=== PATIENT | female | born 1955 | race Caucasian/White ===

== ENCOUNTER 2022-10-31 19:34 | Inpatient (IN) | payer OTHER ==
[~2022-10-31] VITALS: Ht 152.4 cm; Wt 100.7 kg
[2022-10-31 19:38] VITALS: BP_SYST 153; PULSE 70; RESP 16; TEMP 97.1; O2SAT 97
[2022-10-31 21:38] LABS: BASOPHILS # (AUTO) 0.1 K/uL (0.0-0.2); BASOPHILS % (AUTO) 0.5 % (0.0-2.0); EOSINOPHILS # (AUTO) 0.2 K/uL (0.0-0.4); EOSINOPHILS % (AUTO) 1.2 % (0.0-4.0); HEMATOCRIT 34.7 % (36-48); HEMOGLOBIN 11.2 g/dL (12.0-16.0); LYMPHOCYTES % (AUTO) 7.2 % (20.5-51.5); MEAN CORPUSCULAR HEMOGLOBIN 29 pg (27-31); MEAN CORPUSCULAR HGB CONC 32 % (32-36); MEAN CORPUSCULAR VOLUME 90 fL (79.0-98.0); MONOCYTES # (AUTO) 0.8 K/uL (0.0-1.0); MONOCYTES % (AUTO) 6.2 % (1.7-9.3); NEUTROPHILS # (AUTO) 11.4 K/uL (1.8-7.7); NEUTROPHILS % (AUTO) 84.9 % (40.0-70.0); PLATELET COUNT (AUTO) 438 K/uL (130-430); RED BLOOD CELL COUNT(AUTO) 3.85 MIL/uL (4.2-6.2); RED CELL DISTRIBUTION WIDTH 14.6 % (9.0-15.0); WHITE BLOOD COUNT (AUTO) 13.4 K/uL (4.8-10.8)
[2022-10-31 21:52] LABS: ALBUMIN 2.9 g/dL (3.4-4.8); CALCIUM 10.1 mg/dL (8.4-11.0); CREATININE 1.22 mg/dL (0.55-1.30); TOTAL BILIRUBIN 0.3 mg/dL (0.0-1.0); TOTAL PROTEIN, SERUM 7.5 g/dL (6.4-8.3)
[2022-10-31 21:55] LABS: POTASSIUM 2.7 mmol/L (3.5-5.1)
[2022-11-01 01:31] LABS: BILIRUBIN,URINE NEGATIVE (NEGATIVE); BLOOD, URINE NEGATIVE (NEGATIVE); CLARITY/URINE CLEAR (CLEAR); COLOR,URINE YELLOW (YELLOW); GLUCOSE,URINE NEGATIVE (NEGATIVE); KETONES,URINE NEGATIVE (NEGATIVE); LEUKOCYTE ESTERASE ,URINE NEGATIVE (NEGATIVE); NITRITE, URINE NEGATIVE (NEGATIVE); PH,URINE 6.5 (5.0-8.0); PROTEIN URINE NEGATIVE (NEGATIVE); UROBILINOGEN,URINE 0.2 (0.2-1.0)
[2022-11-01] MEDS ORDERED: NACL 0.9% 1,000 ML IV ONE ×2 (02:00→03:45)
[2022-11-01] MEDS ORDERED: KCL 20 mEq in 100 mL (PREMIX) 100 ML IV ONE (02:00)
[2022-11-01] MEDS ORDERED: LORazepam 2 MG/ML VIAL IVP ONE (05:45)
[2022-11-01] MEDS ORDERED: DIPHENHYDRAMINE INJ 50 MG/ML VIAL IVP ONE (05:45)
[2022-11-01] MEDS ORDERED: KETOROLAC TROMETHAMINE 30 MG VIAL IVP ONE (06:00)
[2022-11-01 06:24] LABS: BASOPHILS # (AUTO) 0.1 K/uL (0.0-0.2); BASOPHILS % (AUTO) 0.8 % (0.0-2.0); EOSINOPHILS # (AUTO) 0.2 K/uL (0.0-0.4); EOSINOPHILS % (AUTO) 1.3 % (0.0-4.0); HEMATOCRIT 34.3 % (36-48); HEMOGLOBIN 11.1 g/dL (12.0-16.0); LYMPHOCYTES # (AUTO) 0.9 K/uL (1.0-5.5); LYMPHOCYTES % (AUTO) 7.2 % (20.5-51.5); MEAN CORPUSCULAR HEMOGLOBIN 29 pg (27-31); MEAN CORPUSCULAR HGB CONC 32 % (32-36); MEAN CORPUSCULAR VOLUME 89 fL (79.0-98.0); MONOCYTES # (AUTO) 0.7 K/uL (0.0-1.0); MONOCYTES % (AUTO) 5.5 % (1.7-9.3); NEUTROPHILS # (AUTO) 10.4 K/uL (1.8-7.7); NEUTROPHILS % (AUTO) 85.2 % (40.0-70.0); PLATELET COUNT (AUTO) 431 K/uL (130-430); RED BLOOD CELL COUNT(AUTO) 3.83 MIL/uL (4.2-6.2); RED CELL DISTRIBUTION WIDTH 14.8 % (9.0-15.0); WHITE BLOOD COUNT (AUTO) 12.3 K/uL (4.8-10.8)
[2022-11-01 07:43] LABS: INR 0.9 (0.8-1.2); PROTHROMBIN TIME 9.8 SECS (9.5-12.5)
[2022-11-01] MEDS ORDERED: QUET300T20 PO (08:10)
[2022-11-01] MEDS ORDERED: PANT40TA45 PO (08:10)
[2022-11-01] MEDS ORDERED: CETI1TAB2 PO (08:10)
[2022-11-01] MEDS ORDERED: GLIP5TAB13 PO (08:10)
[2022-11-01] MEDS ORDERED: METF-379 PO (08:10)
[2022-11-01] MEDS ORDERED: VALB80CA PO (08:10)
[2022-11-01] MEDS ORDERED: TICA90TA PO (08:10)
[2022-11-01] MEDS ORDERED: BUSP15TA3 PO (08:10)
[2022-11-01] MEDS ORDERED: DULA0.75 SQ (08:10)
[2022-11-01] MEDS ORDERED: AMLO5TAB92 PO (08:10)
[2022-11-01] MEDS ORDERED: POTA-197 PO (08:10)
[2022-11-01] MEDS ORDERED: OLAN20TA35 PO (08:10)
[2022-11-01] MEDS ORDERED: GABA-331 PO (08:10)
[2022-11-01] MEDS ORDERED: LITH600C PO (08:10)
[2022-11-01] MEDS ORDERED: PRAV40TA63 PO (08:10)
[2022-11-01] MEDS ORDERED: FURO40TA5 PO (08:10)
[2022-11-01] MEDS ORDERED: MIRT-91 PO (08:10)
[2022-11-01] MEDS ORDERED: MONT-40 PO (08:10)
[2022-11-01] MEDS ORDERED: METH-634 PO (08:10)
[2022-11-01] MEDS ORDERED: METO-540 PO (08:10)
[2022-11-01] MEDS ORDERED: SENN8.6T19 PO (08:10)
[2022-11-01] MEDS ORDERED: FLUT16SP16 NS (08:10)
[2022-11-01] MEDS ORDERED: METH1TAB79 PO (08:10)
[2022-11-01] MEDS: LORazepam 2 MG/ML VIAL IVP PRN ×2 (10:26→17:39)
[2022-11-01] MEDS ORDERED: ONDANSETRON HCL 4 MG/2 ML VIAL IVP PRN (10:30)
[2022-11-01] MEDS ORDERED: KETOROLAC TROMETHAMINE 15 MG VIAL IVP PRN (10:30)
[2022-11-01] MEDS ORDERED: methocarbamoL 500 MG TABLET PO PRN (10:30)
[2022-11-01 10:35] VITALS: BP_SYST 125; PULSE 66; TEMP 97.6
[2022-11-01] MEDS ORDERED: POTASSIUM CHLORIDE 20 MEQ TAB.PRT.SR PO ONE (11:00)
[2022-11-01] MEDS: NACL 0.9% 1,000 ML IV SCH ×2 (11:00→19:37)
[2022-11-01] MEDS ORDERED: INSULIN REGULAR, HUMAN 100 UNITS/ML, 3 ML VIAL SUBCUT SCH (11:30)
[2022-11-01 12:00] VITALS: BP_SYST 126; PULSE 67; RESP 22; TEMP 97.8; O2SAT 93
[2022-11-01] MEDS: INSULIN REGULAR, HUMAN 100 UNITS/ML, 3 ML VIAL (humuLIN R) SUBCUT PRN (12:22)
[2022-11-01 16:00] VITALS: BP_SYST 137; RESP 18; TEMP 97.7; O2SAT 97
[2022-11-01 19:52] VITALS: BP_SYST 149; PULSE 69; RESP 18; TEMP 97.6; O2SAT 99
[2022-11-01] MEDS: MONTELUKAST 10 MG TABLET PO SCH (21:00)
[2022-11-01] MEDS: QUEtiapine FUMARATE 100 MG TABLET PO SCH (21:00)
[2022-11-01] MEDS: TICAGRELOR 90 MG TABLET PO SCH (21:00)
[2022-11-01] MEDS: OLANZapine 10 MG TABLET PO SCH (21:00)
[2022-11-01] MEDS: GABAPENTIN 300 MG CAPSULE PO SCH (21:00)
[2022-11-01] MEDS: ATORVASTATIN 10 MG TABLET PO SCH (21:00)
[2022-11-01] MEDS: LITHIUM CARBONATE 300 MG TABLET.SA PO SCH (21:00)
[2022-11-01] MEDS: MIRTAZAPINE 15 MG TABLET PO SCH (21:00)
[2022-11-01] MEDS ORDERED: NON-FORMULARY MEDICATION (Methenamine Hippurate (Hiprex) 1 TAB) PO SCH (21:00)
[2022-11-01] MEDS: busPIRone HCL 5 MG TABLET PO SCH (22:43)
[2022-11-01] MEDS: FLUTICASONE PROPIONATE 50 mCg/SPRAY 16 GM NS SCH (22:48)
[2022-11-02 00:12] VITALS: BP_SYST 102; PULSE 63; RESP 19; TEMP 96.9; O2SAT 100
[2022-11-02] MEDS: NACL 0.9% 1,000 ML IV SCH ×2 (06:05→17:24)
[2022-11-02 06:18] LABS: BASOPHILS % (AUTO) 0.2 % (0.0-2.0); EOSINOPHILS # (AUTO) 0.3 K/uL (0.0-0.4); HEMATOCRIT 38.2 % (36-48); HEMOGLOBIN 12.1 g/dL (12.0-16.0); LYMPHOCYTES # (AUTO) 1.2 K/uL (1.0-5.5); LYMPHOCYTES % (AUTO) 9.5 % (20.5-51.5); MEAN CORPUSCULAR HEMOGLOBIN 29 pg (27-31); MEAN CORPUSCULAR HGB CONC 32 % (32-36); MEAN CORPUSCULAR VOLUME 92 fL (79.0-98.0); MONOCYTES % (AUTO) 7.3 % (1.7-9.3); NEUTROPHILS # (AUTO) 10.6 K/uL (1.8-7.7); PLATELET COUNT (AUTO) 433 K/uL (130-430); RED BLOOD CELL COUNT(AUTO) 4.16 MIL/uL (4.2-6.2); RED CELL DISTRIBUTION WIDTH 15.2 % (9.0-15.0); WHITE BLOOD COUNT (AUTO) 13.1 K/uL (4.8-10.8)
[2022-11-02 08:00] VITALS: BP_SYST 129; PULSE 63; RESP 18; TEMP 97.3; O2SAT 96
[2022-11-02 08:26] LABS: ALBUMIN 2.7 g/dL (3.4-4.8); CALCIUM 9.5 mg/dL (8.4-11.0); CREATININE 0.83 mg/dL (0.55-1.30); POTASSIUM 3.2 mmol/L (3.5-5.1); TOTAL BILIRUBIN 0.3 mg/dL (0.0-1.0); TOTAL PROTEIN, SERUM 6.9 g/dL (6.4-8.3)
[2022-11-02] MEDS: PANTOPRAZOLE SODIUM 40 MG TAB PO SCH (08:45)
[2022-11-02] MEDS: busPIRone HCL 5 MG TABLET PO SCH ×2 (08:45→20:52)
[2022-11-02] MEDS: GABAPENTIN 300 MG CAPSULE PO SCH ×2 (08:45→20:53)
[2022-11-02] MEDS: TICAGRELOR 90 MG TABLET PO SCH ×2 (08:45→20:51)
[2022-11-02] MEDS: FLUTICASONE PROPIONATE 50 mCg/SPRAY 16 GM NS SCH ×2 (08:45→20:51)
[2022-11-02] MEDS: FUROSEMIDE 40 MG TABLET PO SCH (08:46)
[2022-11-02] MEDS: METOPROLOL SUCCINATE 25 MG TAB.SR.24H (TOPROL XL) PO SCH (08:46)
[2022-11-02] MEDS: amLODIPine BESYLATE 5 MG TABLET PO SCH (08:47)
[2022-11-02] MEDS: SENNOSIDES 8.6 MG TABLET PO SCH (08:47)
[2022-11-02] MEDS ORDERED: NON-FORMULARY MEDICATION (Pravastatin Sodium 1 TAB) PO SCH (09:00)
[2022-11-02] MEDS ORDERED: VALBENAZINE TOSYLATE PO SCH (09:00)
[2022-11-02] MEDS ORDERED: POTASSIUM CHLORIDE 20 MEQ TAB.PRT.SR PO ONE (10:00)
[2022-11-02] MEDS: ACETAMINOPHEN 325 MG TABLET PO PRN (11:37)
[2022-11-02 12:00] VITALS: BP_SYST 131; PULSE 65; RESP 20; TEMP 96.9; O2SAT 100
[2022-11-02 16:00] VITALS: BP_SYST 141; PULSE 68; RESP 20; TEMP 97; O2SAT 100
[2022-11-02 19:00] VITALS: BP_SYST 135; PULSE 72; RESP 16; TEMP 97.2; O2SAT 98
[2022-11-02 20:00] VITALS: BP_SYST 135; PULSE 72; RESP 16; TEMP 97.2; O2SAT 98
[2022-11-02] MEDS: INSULIN REGULAR, HUMAN 100 UNITS/ML, 3 ML VIAL (humuLIN R) SUBCUT PRN (20:49)
[2022-11-02] MEDS: LITHIUM CARBONATE 300 MG TABLET.SA PO SCH (20:52)
[2022-11-02] MEDS: ATORVASTATIN 10 MG TABLET PO SCH (20:52)
[2022-11-02] MEDS: MIRTAZAPINE 15 MG TABLET PO SCH (20:53)
[2022-11-02] MEDS: MONTELUKAST 10 MG TABLET PO SCH (20:53)
[2022-11-02] MEDS: QUEtiapine FUMARATE 100 MG TABLET PO SCH (20:53)
[2022-11-02] MEDS: OLANZapine 10 MG TABLET PO SCH (20:54)
[2022-11-02] MEDS: LORazepam 2 MG/ML VIAL IVP PRN (23:22)
[2022-11-03 00:33] VITALS: BP_SYST 122; PULSE 73; RESP 18; TEMP 96.4; O2SAT 96
[2022-11-03] MEDS: NACL 0.9% 1,000 ML IV SCH ×3 (03:00→21:27)
[2022-11-03 04:43] LABS: BASOPHILS # (AUTO) 0.1 K/uL (0.0-0.2); BASOPHILS % (AUTO) 0.4 % (0.0-2.0); EOSINOPHILS # (AUTO) 0.3 K/uL (0.0-0.4); EOSINOPHILS % (AUTO) 2.3 % (0.0-4.0); HEMATOCRIT 34.4 % (36-48); HEMOGLOBIN 11.2 g/dL (12.0-16.0); LYMPHOCYTES # (AUTO) 1.4 K/uL (1.0-5.5); LYMPHOCYTES % (AUTO) 10.9 % (20.5-51.5); MEAN CORPUSCULAR HEMOGLOBIN 29 pg (27-31); MEAN CORPUSCULAR HGB CONC 32 % (32-36); MEAN CORPUSCULAR VOLUME 90 fL (79.0-98.0); MONOCYTES % (AUTO) 7.8 % (1.7-9.3); NEUTROPHILS # (AUTO) 10.1 K/uL (1.8-7.7); NEUTROPHILS % (AUTO) 78.6 % (40.0-70.0); PLATELET COUNT (AUTO) 482 K/uL (130-430); RED BLOOD CELL COUNT(AUTO) 3.82 MIL/uL (4.2-6.2); WHITE BLOOD COUNT (AUTO) 12.9 K/uL (4.8-10.8)
[2022-11-03 05:07] LABS: CALCIUM 9.2 mg/dL (8.4-11.0); CREATININE 0.97 mg/dL (0.55-1.30); POTASSIUM 3.4 mmol/L (3.5-5.1)
[2022-11-03 07:00] VITALS: BP_SYST 124; PULSE 69; RESP 18; TEMP 97.9; O2SAT 95; O2SAT 97
[2022-11-03 08:00] VITALS: BP_SYST 124; PULSE 69; RESP 18; TEMP 97.9; O2SAT 97
[2022-11-03] MEDS: FLUTICASONE PROPIONATE 50 mCg/SPRAY 16 GM NS SCH ×2 (09:00→21:16)
[2022-11-03] MEDS: SENNOSIDES 8.6 MG TABLET PO SCH (09:00)
[2022-11-03] MEDS: busPIRone HCL 5 MG TABLET PO SCH ×2 (09:49→21:05)
[2022-11-03] MEDS: GABAPENTIN 300 MG CAPSULE PO SCH ×2 (09:49→21:05)
[2022-11-03] MEDS: FUROSEMIDE 40 MG TABLET PO SCH (09:50)
[2022-11-03] MEDS: PANTOPRAZOLE SODIUM 40 MG TAB PO SCH (09:50)
[2022-11-03] MEDS: METOPROLOL SUCCINATE 25 MG TAB.SR.24H (TOPROL XL) PO SCH (09:51)
[2022-11-03] MEDS: amLODIPine BESYLATE 5 MG TABLET PO SCH (09:51)
[2022-11-03 11:42] VITALS: BP_SYST 130; PULSE 79; RESP 18; TEMP 97.3; O2SAT 98
[2022-11-03] MEDS: TICAGRELOR 90 MG TABLET PO SCH ×2 (12:24→21:17)
[2022-11-03] MEDS: LORazepam 2 MG/ML VIAL IVP PRN (15:04)
[2022-11-03 16:25] VITALS: BP_SYST 137; PULSE 73; RESP 18; TEMP 98; O2SAT 97
[2022-11-03 20:00] VITALS: BP_SYST 108; PULSE 71; RESP 18; TEMP 97.6; O2SAT 100
[2022-11-03] MEDS: OLANZapine 10 MG TABLET PO SCH (21:05)
[2022-11-03] MEDS: ATORVASTATIN 10 MG TABLET PO SCH (21:07)
[2022-11-03] MEDS: MIRTAZAPINE 15 MG TABLET PO SCH ×2 (21:07→21:22)
[2022-11-03] MEDS: QUEtiapine FUMARATE 100 MG TABLET PO SCH (21:08)
[2022-11-03] MEDS: INSULIN REGULAR, HUMAN 100 UNITS/ML, 3 ML VIAL (humuLIN R) SUBCUT PRN (21:14)
[2022-11-03] MEDS: LITHIUM CARBONATE 300 MG TABLET.SA PO SCH (21:15)
[2022-11-03] MEDS: MONTELUKAST 10 MG TABLET PO SCH (21:25)
[2022-11-04 01:54] VITALS: BP_SYST 114; PULSE 64; RESP 18; TEMP 96.7; O2SAT 96
[2022-11-04 08:00] VITALS: PULSE 70; RESP 20; TEMP 96; O2SAT 97
[2022-11-04] MEDS: SENNOSIDES 8.6 MG TABLET PO SCH (09:00)
[2022-11-04] MEDS: NACL 0.9% 1,000 ML IV SCH ×2 (09:27→19:00)
[2022-11-04] MEDS: TICAGRELOR 90 MG TABLET PO SCH ×2 (09:27→21:34)
[2022-11-04] MEDS: FLUTICASONE PROPIONATE 50 mCg/SPRAY 16 GM NS SCH ×2 (09:27→21:36)
[2022-11-04] MEDS: busPIRone HCL 5 MG TABLET PO SCH ×2 (09:28→21:28)
[2022-11-04] MEDS: GABAPENTIN 300 MG CAPSULE PO SCH ×2 (09:28→21:29)
[2022-11-04] MEDS: FUROSEMIDE 40 MG TABLET PO SCH (09:29)
[2022-11-04] MEDS: amLODIPine BESYLATE 5 MG TABLET PO SCH (09:29)
[2022-11-04] MEDS: PANTOPRAZOLE SODIUM 40 MG TAB PO SCH (09:29)
[2022-11-04] MEDS: METOPROLOL SUCCINATE 25 MG TAB.SR.24H (TOPROL XL) PO SCH (09:30)
[2022-11-04 12:00] VITALS: BP_SYST 118; PULSE 68; RESP 20; TEMP 97; O2SAT 93
[2022-11-04 16:00] VITALS: BP_SYST 115; PULSE 70; RESP 20; TEMP 97; O2SAT 94
[2022-11-04 19:00] VITALS: BP_SYST 137; PULSE 72; RESP 16; TEMP 97.6; O2SAT 96; O2SAT 97
[2022-11-04 20:03] VITALS: BP_SYST 137; PULSE 72; RESP 18; TEMP 97.6; O2SAT 95
[2022-11-04] MEDS: ATORVASTATIN 10 MG TABLET PO SCH (21:28)
[2022-11-04] MEDS: MONTELUKAST 10 MG TABLET PO SCH (21:29)
[2022-11-04] MEDS: QUEtiapine FUMARATE 100 MG TABLET PO SCH (21:29)
[2022-11-04] MEDS: LITHIUM CARBONATE 300 MG TABLET.SA PO SCH (21:51)
[2022-11-04] MEDS: OLANZapine 10 MG TABLET PO SCH (21:51)
[2022-11-04] MEDS: INSULIN REGULAR, HUMAN 100 UNITS/ML, 3 ML VIAL (humuLIN R) SUBCUT PRN (21:53)
[2022-11-05] VITALS: BP_SYST 150; PULSE 69; RESP 18; TEMP 97.3; O2SAT 97
[2022-11-05 04:36] LABS: BASOPHILS % (AUTO) 0.4 % (0.0-2.0); EOSINOPHILS # (AUTO) 0.2 K/uL (0.0-0.4); HEMATOCRIT 35.8 % (36-48); HEMOGLOBIN 11.6 g/dL (12.0-16.0); LYMPHOCYTES # (AUTO) 1.7 K/uL (1.0-5.5); LYMPHOCYTES % (AUTO) 16.2 % (20.5-51.5); MEAN CORPUSCULAR HEMOGLOBIN 29 pg (27-31); MEAN CORPUSCULAR HGB CONC 32 % (32-36); MEAN CORPUSCULAR VOLUME 90 fL (79.0-98.0); MONOCYTES # (AUTO) 0.7 K/uL (0.0-1.0); NEUTROPHILS # (AUTO) 7.9 K/uL (1.8-7.7); NEUTROPHILS % (AUTO) 74.4 % (40.0-70.0); PLATELET COUNT (AUTO) 513 K/uL (130-430); RED BLOOD CELL COUNT(AUTO) 3.99 MIL/uL (4.2-6.2); RED CELL DISTRIBUTION WIDTH 14.6 % (9.0-15.0); WHITE BLOOD COUNT (AUTO) 10.7 K/uL (4.8-10.8)
[2022-11-05 04:45] LABS: CALCIUM 9.3 mg/dL (8.4-11.0); CREATININE 0.88 mg/dL (0.55-1.30)
[2022-11-05] MEDS: NACL 0.9% 1,000 ML IV SCH ×2 (05:09→21:00)
[2022-11-05 08:00] VITALS: PULSE 70; RESP 20; TEMP 97; O2SAT 98
[2022-11-05] MEDS: busPIRone HCL 5 MG TABLET PO SCH ×2 (08:36→21:00)
[2022-11-05] MEDS: METOPROLOL SUCCINATE 25 MG TAB.SR.24H (TOPROL XL) PO SCH (08:36)
[2022-11-05] MEDS: GABAPENTIN 300 MG CAPSULE PO SCH ×2 (08:36→21:00)
[2022-11-05] MEDS: amLODIPine BESYLATE 5 MG TABLET PO SCH (08:37)
[2022-11-05] MEDS: PANTOPRAZOLE SODIUM 40 MG TAB PO SCH (08:37)
[2022-11-05] MEDS: FUROSEMIDE 40 MG TABLET PO SCH (08:38)
[2022-11-05] MEDS: FLUTICASONE PROPIONATE 50 mCg/SPRAY 16 GM NS SCH ×2 (08:41→21:00)
[2022-11-05] MEDS: TICAGRELOR 90 MG TABLET PO SCH ×2 (08:41→21:00)
[2022-11-05] MEDS: SENNOSIDES 8.6 MG TABLET PO SCH (08:47)
[2022-11-05 11:45] VITALS: BP_SYST 120; PULSE 68; RESP 19; TEMP 98.5; O2SAT 100
[2022-11-05] MEDS: ACETAMINOPHEN 325 MG TABLET PO PRN (12:09)
[2022-11-05] MEDS ORDERED: POTASSIUM CHLORIDE 20 MEQ TAB.PRT.SR PO ONE (15:15)
[2022-11-05 17:27] VITALS: BP_SYST 127; PULSE 61; RESP 18; TEMP 97.8; O2SAT 100
[2022-11-05 20:00] VITALS: BP_SYST 131; PULSE 68; RESP 18; TEMP 97.9; O2SAT 98
[2022-11-05] MEDS: MIRTAZAPINE 15 MG TABLET PO SCH (21:00)
[2022-11-05] MEDS: LORazepam 2 MG/ML VIAL IVP PRN (21:00)
[2022-11-05] MEDS: OLANZapine 10 MG TABLET PO SCH (21:00)
[2022-11-05] MEDS: ATORVASTATIN 10 MG TABLET PO SCH (21:00)
[2022-11-05] MEDS: MONTELUKAST 10 MG TABLET PO SCH (21:00)
[2022-11-05] MEDS: QUEtiapine FUMARATE 100 MG TABLET PO SCH (21:00)
[2022-11-05] MEDS: LITHIUM CARBONATE 300 MG TABLET.SA PO SCH (21:00)
[2022-11-06] MEDS: NACL 0.9% 1,000 ML IV SCH ×2 (00:42→10:15)
[2022-11-06] MEDS ORDERED: DULAGLUTIDE 0.75 MG SUBCUT SCH (06:00)
[2022-11-06] MEDS ORDERED: NON-FORMULARY MEDICATION (Dulaglutide (Trulicity) 0.75 MG) SQ SCH (06:00)
[2022-11-06 08:00] VITALS: BP_SYST 120; PULSE 76; RESP 18; TEMP 97.1; O2SAT 98
[2022-11-06] MEDS ORDERED: VALBENAZINE TOSYLATE 80 MG PO SCH (09:00)
[2022-11-06] MEDS: FLUTICASONE PROPIONATE 50 mCg/SPRAY 16 GM NS SCH (10:03)
[2022-11-06] MEDS: SENNOSIDES 8.6 MG TABLET PO SCH (10:04)
[2022-11-06] MEDS: GABAPENTIN 300 MG CAPSULE PO SCH (10:04)
[2022-11-06] MEDS: busPIRone HCL 5 MG TABLET PO SCH (10:05)
[2022-11-06] MEDS: METOPROLOL SUCCINATE 25 MG TAB.SR.24H (TOPROL XL) PO SCH (10:05)
[2022-11-06] MEDS: PANTOPRAZOLE SODIUM 40 MG TAB PO SCH (10:05)
[2022-11-06] MEDS: TICAGRELOR 90 MG TABLET PO SCH (10:06)
[2022-11-06] MEDS: FUROSEMIDE 40 MG TABLET PO SCH (10:06)
[2022-11-06] MEDS: amLODIPine BESYLATE 5 MG TABLET PO SCH (10:06)
[2022-11-06 12:42] VITALS: BP_SYST 125; PULSE 72; RESP 17; TEMP 97.4; O2SAT 97
[2022-11-06 15:23] VITALS: BP_SYST 125; PULSE 72; RESP 17; TEMP 97.4; O2SAT 97
== END 2022-11-06 16:10 | DRG 641 ==
LOC: SED 19:34 → STU 11-01 03:31 → SMU 11-05 11:44
PROVIDERS: ADMIT Internal Medicine; ATTEND Internal Medicine
DX: E87.6 Hypokalemia (principal); R65.10 Systemic inflammatory response syndrome (SIRS) of non-infectious origin without acute organ dysfunction; E87.1 Hypo-osmolality and hyponatremia; I11.0 Hypertensive heart disease with heart failure; I50.9 Heart failure, unspecified; E11.42 Type 2 diabetes mellitus with diabetic polyneuropathy; J44.9 Chronic obstructive pulmonary disease, unspecified; K21.9 Gastro-esophageal reflux disease without esophagitis; E78.5 Hyperlipidemia, unspecified; F31.9 Bipolar disorder, unspecified; F20.9 Schizophrenia, unspecified; Z79.84 Long term (current) use of oral hypoglycemic drugs; Z79.899 Other long term (current) drug therapy
CPT/HCPCS: 36415; 70450-TC; 71045; 76376; 80048; 80053; 80178; 81003; 82962; 83605; 84443; 85025; 85610-TC; 85730-TC; 87040; 93005; 97110-GP; 97530-GP; 99285; G0378; J1200; J1815; J1885; J2060; J3480; J7030